=== PATIENT | male | born 1935 | race Caucasian/White ===

== ENCOUNTER 2019-06-15 01:53 | Inpatient (IN) | payer BC, OTHER ==
[2019-06-15] MEDS: SODIUM CHLORIDE 0.9% 1L BAG IV* (02:10)
[2019-06-15 02:18] LABS: ADD MAN DIFF? NO
[2019-06-15 02:19] LABS: ABNORMAL IP MESSAGE 1; BASOPHIL # 0.1 10^3/ul (0.0-0.1); BASOPHILS % 0.5 % (0.0-2.0); EOSINOPHILS % 0.1 % (0.0-7.0); HEMATOCRIT 49.7 % (42.0-52.0); HEMOGLOBIN 16.2 g/dl (14.0-18.0); LYMPHOCYTES # 0.4 10^3/ul (0.8-2.9); LYMPHOCYTES % 1.7 % (15.0-51.0); MEAN CORPUSCULAR HEMOGLOBIN 29.7 pg (29.0-33.0); MEAN CORPUSCULAR HGB CONC 32.6 g/dl (32.0-37.0); MEAN PLATELET VOLUME 11.1 fl (7.4-10.4); MONOCYTE # 0.6 10^3/ul (0.3-0.9); NEUTROPHIL # 20.2 10^3/ul (1.6-7.5); NEUTROPHILS % 94.2 % (39.0-77.0); PLATELET COUNT 208 10^3/UL (140-415); POSITIVE DIFF @See below; RED BLOOD COUNT 5.46 10^6/ul (4.70-6.10); RED CELL DISTRIBUTION WIDTH 12.9 % (11.5-14.5)
[2019-06-15 02:19] LABS: WHITE BLOOD COUNT 21.4 10^3/ul (4.8-10.8)
[2019-06-15 02:37] LABS: ALANINE AMINOTRANSFERASE 14 IU/L (13-69); ALBUMIN 3.3 g/dl (3.3-4.9); ALBUMIN/GLOBULIN RATIO 0.94; ALKALINE PHOSPHATASE 48 IU/L (42-121); ANION GAP 8 (5-13); ASPARTATE AMINO TRANSFERASE 36 IU/L (15-46); BILIRUBIN,INDIRECT 0.7 mg/dl (0-1.1); BILIRUBIN,TOTAL 0.7 mg/dl (0.2-1.3); BLOOD UREA NITROGEN 26 mg/dl (7-20); CALCIUM 9.3 mg/dl (8.4-10.2); CARBON DIOXIDE 27 mmol/L (21-31); CHLORIDE 105 mmol/L (97-110); CREATININE 1.12 mg/dl (0.61-1.24); GLUCOSE 193 mg/dl (70-220); POTASSIUM 3.7 mmol/L (3.5-5.1); SODIUM 140 mmol/L (135-144); TOTAL PROTEIN 6.8 g/dl (6.1-8.1)
[2019-06-15 02:39] LABS: INR 1.02; PROTIME 13.5 Sec (11.9-14.9); PT RATIO 1.1
[2019-06-15 02:40] LABS: PARTIAL THROMBOPLASTIN TIME 36.3 Sec (23.0-35.0)
[2019-06-15 02:47] LABS: TROPONIN-I < 0.012 ng/ml (0.000-0.120)
[2019-06-15] MEDS: SOD CHLORIDE 0.9% 1,000 ML IV (03:29)
[2019-06-15] MEDS ORDERED: ACETAMINOPHEN 325 MG TAB PO ×2 (03:30)
[2019-06-15] MEDS ORDERED: ONDANSETRON 4 MG INJ IV ×2 (03:30)
[2019-06-15] MEDS ORDERED: DOCUSATE SODIUM 100 MG CAP PO (03:30)
[2019-06-15] MEDS ORDERED: NACL 0.9% 3 ML SYG IV (03:30)
[2019-06-15] MEDS ORDERED: BISACODYL (EC) 5 MG TAB PO (03:30)
[2019-06-15] MEDS ORDERED: LEVALBUTEROL (NEB) 1.25 MG/0.5 ML AMP HHN ×2 (04:00→11:30)
[2019-06-15] MEDS ORDERED: IPRATROPIUM (NEB) 0.5 MG/2.5 ML AMP HHN ×2 (04:00→11:30)
[2019-06-15 04:56] LABS: AADO2 Arterial 167.9 mmHg (7.0-24.0); Allen Test ACCEPTAB; Arterial Base Excess -2.9 mmol/L (-3.0-3); Arterial Blood Gas Oxygen Sat 96.1 mmHG (95.0-100.0); Arterial COHb 0.7 % (0.0-3.0); Arterial HCO3 19.3 mmol/L (22.0-26.0); Arterial MetHb 0.4 % (0.0-1.5); MODE NASAL CANNULA; Site Right Radial
[2019-06-15] MEDS: VANCOMYCIN HCL 2 GM in SOD CHLORIDE 0.9% 500 ML IVPB (05:00)
[2019-06-15] MEDS: VANCOMYCIN IV PER PHARMACY XX (05:21)
[2019-06-15 06:41] LABS: LACTIC ACID 1.5 mmol/L (0.5-2.0)
[2019-06-15] MEDS: PIPER-TAZO 3.375 GM IV (PMX) 100 ML IVPB ×4 (07:01→23:50)
[2019-06-15] MEDS: HEPARIN 5,000 UNIT/1 ML VIAL SC (07:02)
[2019-06-15 07:59] LABS: LACTIC ACID 1.3 mmol/L (0.5-2.0)
[2019-06-15] MEDS ORDERED: CARBIDOPA/LEVODOPA (25/100) TAB PO (09:00)
[2019-06-15] MEDS: CARBIDOPA/LEVODOPA (25/100) TAB GTB (09:49)
[2019-06-15 12:12] LABS: ADD UMIC NO; UR ASCORBIC ACID 20 mg/dL (NEGATIVE); UR BILIRUBIN (Dip) NEGATIVE (NEGATIVE); UR BLOOD (Dip) NEGATIVE (NEGATIVE); UR CLARITY CLEAR (CLEAR); UR COLOR YELLOW (YELLOW); UR GLUCOSE (Dip) NEGATIVE (NEGATIVE); UR KETONES (Dip) TRACE mg/dL (NEGATIVE); UR LEUKOCYTE ESTERASE (Dip) NEGATIVE Leu/ul (NEGATIVE); UR NITRITE (Dip) NEGATIVE (NEGATIVE); UR SPECIFIC GRAVITY (Dip) 1.019 (1.003-1.030); UR TOTAL PROTEIN (Dip) NEGATIVE (NEGATIVE); UR UROBILINOGEN (Dip) NEGATIVE (NEGATIVE)
[2019-06-15] MEDS: LEVALBUTEROL (NEB) 0.63 MG/3 ML AMP HHN ×2 (13:07→19:27)
[2019-06-15] MEDS ORDERED: QUETIAPINE 25 MG TAB PO (21:00)
[2019-06-15] MEDS ORDERED: QUETIAPINE 25 MG TAB GTB (21:00)
[2019-06-15] MEDS: QUETIAPINE 25 MG TAB GTB (21:26)
[2019-06-16] MEDS: LEVALBUTEROL (NEB) 0.63 MG/3 ML AMP HHN ×4 (02:04→19:58)
[2019-06-16] MEDS: PIPER-TAZO 3.375 GM IV (PMX) 100 ML IVPB ×3 (05:46→17:25)
[2019-06-16] MEDS: VANCOMYCIN 1.25 GM/NS 250 ML 250 ML IVPB (05:48)
[2019-06-16 06:21] LABS: ADD MAN DIFF? NO
[2019-06-16 06:29] LABS: BASOPHIL # 0.1 10^3/ul (0.0-0.1); BASOPHILS % 0.8 % (0.0-2.0); EOSINOPHILS # 0.4 10^3/ul (0.0-0.5); EOSINOPHILS % 3.4 % (0.0-7.0); HEMATOCRIT 39.3 % (42.0-52.0); HEMOGLOBIN 12.8 g/dl (14.0-18.0); MEAN CORPUSCULAR HEMOGLOBIN 30.1 pg (29.0-33.0); MEAN CORPUSCULAR HGB CONC 32.6 g/dl (32.0-37.0); MEAN CORPUSCULAR VOLUME 92.5 fl (82.0-101.0); MEAN PLATELET VOLUME 11.5 fl (7.4-10.4); MONOCYTE # 0.7 10^3/ul (0.3-0.9); MONOCYTES % 6.1 % (0.0-11.0); NEUTROPHIL # 8.9 10^3/ul (1.6-7.5); NEUTROPHILS % 80.3 % (39.0-77.0); PLATELET COUNT 178 10^3/UL (140-415); RED BLOOD COUNT 4.25 10^6/ul (4.70-6.10)
[2019-06-16 06:50] LABS: ANION GAP 4 (5-13); BLOOD UREA NITROGEN 23 mg/dl (7-20); CALCIUM 8.5 mg/dl (8.4-10.2); CARBON DIOXIDE 27 mmol/L (21-31); CHLORIDE 108 mmol/L (97-110); CREATININE 1.16 mg/dl (0.61-1.24); GLUCOSE 106 mg/dl (70-220); POTASSIUM 3.8 mmol/L (3.5-5.1); SODIUM 139 mmol/L (135-144)
[2019-06-16 06:53] LABS: HEMOGLOBIN A1C 5.4 % (0-5.9)
[2019-06-16 06:56] LABS: LACTIC ACID 1.2 mmol/L (0.5-2.0)
[2019-06-16 07:11] LABS: MAGNESIUM 1.8 mg/dl (1.7-2.5)
[2019-06-16] MEDS: ACETAMINOPHEN 325 MG TAB GTB ×2 (09:08→16:01)
[2019-06-16] MEDS: ENOXAPARIN 40 MG/0.4 ML SYG SC (13:25)
[2019-06-16] MEDS: QUETIAPINE 25 MG TAB GTB (20:57)
[2019-06-17] MEDS: PIPER-TAZO 3.375 GM IV (PMX) 100 ML IVPB ×4 (00:57→17:26)
[2019-06-17] MEDS: LEVALBUTEROL (NEB) 0.63 MG/3 ML AMP HHN ×4 (01:40→21:05)
[2019-06-17] MEDS: VANCOMYCIN 1.25 GM/NS 250 ML 250 ML IVPB (05:08)
[2019-06-17 06:04] LABS: ADD MAN DIFF? NO
[2019-06-17 06:07] LABS: WHITE BLOOD COUNT 11.3 10^3/ul (4.8-10.8)
[2019-06-17 06:07] LABS: BASOPHIL # 0.1 10^3/ul (0.0-0.1); BASOPHILS % 0.7 % (0.0-2.0); EOSINOPHILS # 0.4 10^3/ul (0.0-0.5); EOSINOPHILS % 3.9 % (0.0-7.0); HEMATOCRIT 39.8 % (42.0-52.0); HEMOGLOBIN 12.9 g/dl (14.0-18.0); LYMPHOCYTES # 0.7 10^3/ul (0.8-2.9); MEAN CORPUSCULAR HEMOGLOBIN 30.1 pg (29.0-33.0); MEAN CORPUSCULAR HGB CONC 32.4 g/dl (32.0-37.0); MEAN PLATELET VOLUME 11.3 fl (7.4-10.4); MONOCYTE # 0.8 10^3/ul (0.3-0.9); MONOCYTES % 7.4 % (0.0-11.0); NEUTROPHIL # 9.2 10^3/ul (1.6-7.5); NEUTROPHILS % 81.7 % (39.0-77.0); PLATELET COUNT 193 10^3/UL (140-415); RED BLOOD COUNT 4.28 10^6/ul (4.70-6.10); RED CELL DISTRIBUTION WIDTH 12.9 % (11.5-14.5)
[2019-06-17 06:47] LABS: ANION GAP 1 (5-13); BLOOD UREA NITROGEN 20 mg/dl (7-20); CALCIUM 8.5 mg/dl (8.4-10.2); CARBON DIOXIDE 32 mmol/L (21-31); CHLORIDE 105 mmol/L (97-110); CREATININE 1.13 mg/dl (0.61-1.24); GLUCOSE 111 mg/dl (70-220); POTASSIUM 3.8 mmol/L (3.5-5.1); SODIUM 138 mmol/L (135-144)
[2019-06-17] MEDS: CARBIDOPA/LEVODOPA (25/100) TAB GTB (09:05)
[2019-06-17] MEDS: ENOXAPARIN 40 MG/0.4 ML SYG SC (09:19)
[2019-06-17] MEDS: BROMOCRIPTINE 2.5 MG TAB GTB (21:51)
[2019-06-17] MEDS: QUETIAPINE 25 MG TAB GTB (21:51)
[2019-06-18] MEDS: PIPER-TAZO 3.375 GM IV (PMX) 100 ML IVPB ×2 (00:15→06:24)
[2019-06-18] MEDS: LEVALBUTEROL (NEB) 0.63 MG/3 ML AMP HHN ×2 (01:41→10:58)
[2019-06-18 04:09] LABS: ADD MAN DIFF? NO
[2019-06-18 04:36] LABS: ANION GAP 4 (5-13); BLOOD UREA NITROGEN 17 mg/dl (7-20); CALCIUM 9.1 mg/dl (8.4-10.2); CARBON DIOXIDE 30 mmol/L (21-31); CHLORIDE 104 mmol/L (97-110); CREATININE 1.13 mg/dl (0.61-1.24); GLUCOSE 99 mg/dl (70-220); POTASSIUM 3.9 mmol/L (3.5-5.1); SODIUM 138 mmol/L (135-144)
[2019-06-18 04:49] LABS: VANCOMYCIN,TROUGH 8.5 ug/ml (10.0-20.0)
[2019-06-18] MEDS: VANCOMYCIN 1.25 GM/NS 250 ML 250 ML IVPB (05:15)
[2019-06-18 05:36] LABS: BASOPHIL # 0.1 10^3/ul (0.0-0.1); BASOPHILS % 0.9 % (0.0-2.0); EOSINOPHILS # 0.2 10^3/ul (0.0-0.5); EOSINOPHILS % 2.3 % (0.0-7.0); HEMATOCRIT 41.7 % (42.0-52.0); HEMOGLOBIN 13.5 g/dl (14.0-18.0); LYMPHOCYTES # 0.7 10^3/ul (0.8-2.9); LYMPHOCYTES % 6.6 % (15.0-51.0); MEAN CORPUSCULAR HEMOGLOBIN 30.1 pg (29.0-33.0); MEAN CORPUSCULAR HGB CONC 32.4 g/dl (32.0-37.0); MEAN CORPUSCULAR VOLUME 92.9 fl (82.0-101.0); MEAN PLATELET VOLUME 11.4 fl (7.4-10.4); MONOCYTE # 0.9 10^3/ul (0.3-0.9); MONOCYTES % 8.7 % (0.0-11.0); NEUTROPHIL # 8.4 10^3/ul (1.6-7.5); NEUTROPHILS % 81.2 % (39.0-77.0); PLATELET COUNT 192 10^3/UL (140-415); POSITIVE DIFF @See below; RED BLOOD COUNT 4.49 10^6/ul (4.70-6.10); RED CELL DISTRIBUTION WIDTH 13.1 % (11.5-14.5)
[2019-06-18 05:36] LABS: WHITE BLOOD COUNT 10.4 10^3/ul (4.8-10.8)
[2019-06-18] MEDS: BROMOCRIPTINE 2.5 MG TAB GTB ×2 (08:17→20:27)
[2019-06-18] MEDS: CARBIDOPA/LEVODOPA (25/100) TAB GTB (08:17)
[2019-06-18] MEDS: ENOXAPARIN 40 MG/0.4 ML SYG SC (08:24)
[2019-06-18] MEDS: LEVOFLOXACIN 500MG/D5W (PMX) 100 ML IVPB (10:23)
[2019-06-18] MEDS: LANSOPRAZOLE 15 MG CAP GTB (11:30)
[2019-06-18] MEDS: QUETIAPINE 25 MG TAB GTB (20:27)
[2019-06-18] MEDS ORDERED: VANCOMYCIN 1.25 GM/NS 250 ML 250 ML IVPB (23:00)
[2019-06-19] MEDS: LANSOPRAZOLE 15 MG CAP GTB (05:27)
[2019-06-19 06:37] LABS: ADD MAN DIFF? NO
[2019-06-19 06:40] LABS: BASOPHIL # 0.1 10^3/ul (0.0-0.1); BASOPHILS % 0.9 % (0.0-2.0); EOSINOPHILS # 0.5 10^3/ul (0.0-0.5); EOSINOPHILS % 4.7 % (0.0-7.0); HEMATOCRIT 39.8 % (42.0-52.0); LYMPHOCYTES # 0.9 10^3/ul (0.8-2.9); MEAN CORPUSCULAR HEMOGLOBIN 30.2 pg (29.0-33.0); MEAN CORPUSCULAR HGB CONC 32.7 g/dl (32.0-37.0); MEAN CORPUSCULAR VOLUME 92.6 fl (82.0-101.0); MEAN PLATELET VOLUME 11.2 fl (7.4-10.4); MONOCYTE # 0.9 10^3/ul (0.3-0.9); NEUTROPHIL # 7.5 10^3/ul (1.6-7.5); PLATELET COUNT 221 10^3/UL (140-415); RED CELL DISTRIBUTION WIDTH 12.7 % (11.5-14.5)
[2019-06-19 06:40] LABS: WHITE BLOOD COUNT 9.8 10^3/ul (4.8-10.8)
[2019-06-19] MEDS: LEVOFLOXACIN 500MG/D5W (PMX) 100 ML IVPB (09:52)
[2019-06-19] MEDS: BROMOCRIPTINE 2.5 MG TAB GTB (09:52)
[2019-06-19] MEDS: CARBIDOPA/LEVODOPA (25/100) TAB GTB (09:52)
[2019-06-19] MEDS: ENOXAPARIN 40 MG/0.4 ML SYG SC (10:10)
[2019-06-19] MEDS ORDERED: GUAIFENESIN/DM (SR) TAB PO (13:00)
[2019-06-19] MEDS ORDERED: GUAIFENESIN/DM 5ML CUP PO (13:30)
== END 2019-06-19 18:05 | DRG 871 ==
LOC: E/R 01:53 → 6WM 03:25
PROVIDERS: Family Medicine
DX: A41.9 Sepsis, unspecified organism (principal); J18.9 Pneumonia, unspecified organism; R64 Cachexia; G20 Parkinson's disease; R13.10 Dysphagia, unspecified; Z93.1 Gastrostomy status; F02.80 Dementia in other diseases classified elsewhere, unspecified severity, without behavioral disturbance, psychotic disturbance, mood disturbance, and anxiety; R09.02 Hypoxemia; R53.81 Other malaise; Y95 Nosocomial condition; Z66 Do not resuscitate; Z68.26 Body mass index [BMI] 26.0-26.9, adult; R65.20 Severe sepsis without septic shock
CPT/HCPCS: 36415; 36600; 71045; 80048; 80053; 80202; 81003; 82803; 83036; 83605; 83735; 84443; 84484; 85025; 85610; 85730; 87040-91; 87070; 87081; 87086; 89220; 93005; 94640; 94664; 97110; 97163; 97530; 99285-25